=== PATIENT | male | born 1955 | race African-American/Black ===

== ENCOUNTER 2021-09-19 03:30 | Inpatient (IN) | payer MEDICARE, MEDICAID ==
[~2021-09-19] VITALS: Ht 188 cm; Wt 102.1 kg
[2021-09-19] MEDS ORDERED: NITROGLYCERIN 0.4MG TABLET SL SL PRN (03:45)
[2021-09-19] MEDS ORDERED: ASPIRIN 81MG TABLET PO ONE (03:45)
[2021-09-19 04:06] LABS: BASOPHILS % 0.8 % (0.0-2.0); HEMATOCRIT. 42.1 % (42.0-52.0); HEMOGLOBIN. 14.3 g/dL (14.0-18.0); LYMPHOCYTES % 43.4 % (20.0-50.0); MEAN CORPUSCULAR HEMOGLOBIN 29.9 pg (28.0-32.0); MEAN CORPUSCULAR VOLUME 87.9 fL (80.0-94.0); MEAN PLATELET VOLUME 9.1 fl (7.4-10.4); NEUTROPHILS % 45.8 % (40.0-76.0); PLATELET 199 x1000/uL (130-400); RED BLOOD CELL COUNT 4.79 mill/uL (4.7-6.1); RED CELL DISTRIBUTION WIDTH 13.5 % (11.6-14.6)
[2021-09-19 04:13] LABS: CHLORIDE 103 mEq/L (98-107)
[2021-09-19 09:00] VITALS: BP 136/91
[2021-09-19] MEDS ORDERED: LORAZEPAM 0.5MG TABLET PO PRN (09:45)
[2021-09-19] MEDS ORDERED: ACETAMINOPHEN 325MG TABLET PO PRN ×2 (09:45)
[2021-09-19] MEDS ORDERED: DOCUSATE SODIUM 100MG CAPSULE PO PRN (09:45)
[2021-09-19] MEDS ORDERED: CLONIDINE 0.1MG TABLET PO PRN (09:45)
[2021-09-19] MEDS ORDERED: ONDANSETRON HCL 4MG/2ML INJ IV PRN (09:45)
[2021-09-19] MEDS ORDERED: IPRATROPIUM/ALBUTEROL 0.5-3(2.5)MG/3ML NEB HHN PRN (09:45)
[2021-09-19] MEDS: POTASSIUM CHLORIDE 20MEQ TABLET SR PO SCH ×2 (09:45→15:27)
[2021-09-19] MEDS ORDERED: HYDROCODONE/ACETAMINOPHEN 5/325MG TABLET PO PRN (09:45)
[2021-09-19 12:00] VITALS: BP 136/89
[2021-09-19 12:17] LABS: CREATINE KINASE MB FRACTION 2.8 ng/mL (0.5-3.6)
[2021-09-19] MEDS: ASPIRIN 81MG TABLET PO SCH (15:30)
[2021-09-19] MEDS ORDERED: POTASSIUM CHLORIDE 20MEQ TABLET SR PO SCH (15:30)
[2021-09-19 16:00] VITALS: BP 141/90
[2021-09-19] MEDS ORDERED: LOSA1TAB37 PO (16:13)
[2021-09-19 18:05] LABS: *AMPHETAMINES SCREEN URINE NEGATIVE (NEGATIVE); *BARBITURATES SCREEN URINE NEGATIVE (NEGATIVE); *BENZODIAZEPINES SCREEN URINE NEGATIVE (NEGATIVE); *COCAINE SCREEN URINE NEGATIVE (NEGATIVE); METHADONE URINE SCREEN NEGATIVE (NEGATIVE); OPIATES URINE SCREEN NEGATIVE (NEGATIVE)
[2021-09-19 18:06] LABS: CANNABINOID URINE SCREEN NEGATIVE (NEGATIVE); PHENCYCLIDINE URINE SCREEN NEGATIVE (NEGATIVE)
[2021-09-19 20:00] VITALS: BP 128/57
[2021-09-20] VITALS (7 sets, daily range): BP systolic 106–133; BP diastolic 18–94
[2021-09-20 08:15] LABS: CHLORIDE 104 mEq/L (98-107)
[2021-09-20 08:26] LABS: BASOPHILS % 0.5 % (0.0-2.0); EOSINOPHILS % 2.1 % (0.0-5.0); HEMOGLOBIN. 13.7 g/dL (14.0-18.0); LYMPHOCYTES % 44.8 % (20.0-50.0); MEAN CORPUSCULAR HEMOGLOBIN 29.8 pg (28.0-32.0); MEAN CORPUSCULAR VOLUME 89.1 fL (80.0-94.0); MEAN PLATELET VOLUME 9.5 fl (7.4-10.4); MONOCYTES % 11.8 % (2.0-8.0); NEUTROPHILS % 40.8 % (40.0-76.0); PLATELET 203 x1000/uL (130-400); RED CELL DISTRIBUTION WIDTH 13.4 % (11.6-14.6)
[2021-09-20] MEDS: ASPIRIN 81MG TABLET PO SCH (09:24)
[2021-09-20] MEDS: FUROSEMIDE 40MG TABLET PO SCH (11:10)
[2021-09-20] MEDS ORDERED: DIPHENHYDRAMINE 12.5MG/5ML UDC PO PRN (18:30)
[2021-09-20] MEDS ORDERED: NALOXONE HCL 0.4MG/ML VIAL IV PRN (18:45)
[2021-09-20] MEDS: CARVEDILOL 3.125 MG TABLET PO SCH (22:12)
[2021-09-21] VITALS: BP 113/83
[2021-09-21 04:00] VITALS: BP 119/79
[2021-09-21 06:59] LABS: BASOPHILS % 0.4 % (0.0-2.0); EOSINOPHILS % 1.9 % (0.0-5.0); HEMATOCRIT. 41.5 % (42.0-52.0); HEMOGLOBIN. 14.1 g/dL (14.0-18.0); LYMPHOCYTES % 39.5 % (20.0-50.0); MEAN CORPUSCULAR HEMOGLOBIN 29.9 pg (28.0-32.0); MEAN CORPUSCULAR VOLUME 88.2 fL (80.0-94.0); MEAN PLATELET VOLUME 9.7 fl (7.4-10.4); MONOCYTES % 9.8 % (2.0-8.0); NEUTROPHILS % 48.4 % (40.0-76.0); PLATELET 215 x1000/uL (130-400); RED BLOOD CELL COUNT 4.71 mill/uL (4.7-6.1); RED CELL DISTRIBUTION WIDTH 13.4 % (11.6-14.6)
[2021-09-21 07:02] LABS: CHLORIDE 103 mEq/L (98-107)
[2021-09-21 08:00] VITALS: BP 132/82
[2021-09-21] MEDS: LOSARTAN POTASSIUM 25 MG TABLET PO SCH (10:31)
[2021-09-21] MEDS: CARVEDILOL 3.125 MG TABLET PO SCH ×2 (10:31→21:33)
[2021-09-21] MEDS: ASPIRIN 81MG TABLET PO SCH (10:31)
[2021-09-21] MEDS: FUROSEMIDE 40MG TABLET PO SCH (10:32)
[2021-09-21 12:00] VITALS: BP 136/85
[2021-09-21 16:00] VITALS: BP 142/90
[2021-09-21 20:00] VITALS: BP 128/85
[2021-09-22] VITALS: BP 114/64
[2021-09-22 04:00] VITALS: BP 115/79
[2021-09-22 07:46] VITALS: BP 115/83
[2021-09-22] MEDS ORDERED: REGADENOSON 0.4 MG/5 ML IV SCH (08:30)
[2021-09-22] MEDS ORDERED: COR3 PO (08:48)
[2021-09-22] MEDS ORDERED: NITR0.4T49 SL (08:48)
[2021-09-22] MEDS ORDERED: FURO40TA5 PO (08:48)
[2021-09-22] MEDS ORDERED: ASPI-1406 MT (08:48)
[2021-09-22] MEDS ORDERED: LOSA25TA3 PO (08:48)
[2021-09-22] MEDS ORDERED: REGADENOSON 0.4 MG/5 ML IV ONE (09:39)
[2021-09-22] MEDS: ASPIRIN 81MG TABLET PO SCH (10:18)
[2021-09-22] MEDS: FUROSEMIDE 40MG TABLET PO SCH (10:18)
[2021-09-22] MEDS: LOSARTAN POTASSIUM 25 MG TABLET PO SCH (10:18)
[2021-09-22] MEDS: CARVEDILOL 3.125 MG TABLET PO SCH (10:18)
[2021-09-22] MEDS ORDERED: ATOR40TA70 MT (10:47)
[2021-09-22 10:59] VITALS: BP 115/83
[2021-09-22 11:31] VITALS: BP 121/95
== END 2021-09-22 13:00 | disposition home health service (06) | DRG 206 ==
LOC: ER 03:30 → 8WST 06:11 → EDBEDREQ 06:19 → EDBEDREQTM 06:19
PROVIDERS: ADMIT Internal Medicine; ATTEND Internal Medicine
DX: M94.0 Chondrocostal junction syndrome [Tietze] (principal); I50.40 Unspecified combined systolic (congestive) and diastolic (congestive) heart failure; I42.0 Dilated cardiomyopathy; I42.2 Other hypertrophic cardiomyopathy; I25.10 Atherosclerotic heart disease of native coronary artery without angina pectoris; E78.1 Pure hyperglyceridemia; E87.6 Hypokalemia; Z20.822 Contact with and (suspected) exposure to COVID-19; E78.5 Hyperlipidemia, unspecified; F10.10 Alcohol abuse, uncomplicated; F14.10 Cocaine abuse, uncomplicated; Y90.9 Presence of alcohol in blood, level not specified; I11.0 Hypertensive heart disease with heart failure; I25.2 Old myocardial infarction; Z95.810 Presence of automatic (implantable) cardiac defibrillator; Z87.891 Personal history of nicotine dependence; Z82.49 Family history of ischemic heart disease and other diseases of the circulatory system
CPT/HCPCS: 36415; 71045; 78452; 80048; 80053; 80061; 80305; 82550; 82553; 83036; 83735; 83880; 84443; 84484; 85025; 85379; 87426; 93005; 93017; 93306; 97161; 97166; 99285; A9500; J2785

== ENCOUNTER 2021-11-12 17:32 | Inpatient (IN) | payer MEDICARE, MEDICAID ==
[~2021-11-12] VITALS: Ht 188 cm; Wt 96.7 kg
[~2021-11-12 17:32] MED LIST: ASPI-1406 MT; ATOR40TA70 MT; COR3 PO; FURO40TA5 PO; LOSA25TA3 PO; NITR0.4T49 SL
[2021-11-12] MEDS ORDERED: MORPHINE SULFATE 4 MG/ML CPJ (NOT FOR IM USE) IV STA (19:45)
[2021-11-12] MEDS ORDERED: CEFTRIAXONE 1 G PREMIX 50 ML IV ONE ×2 (19:45→21:30)
[2021-11-12] MEDS ORDERED: ONDANSETRON HCL 4MG/2ML INJ IV STA (19:45)
[2021-11-12 20:48] LABS: BASOPHILS % 0.3 % (0.0-2.0); EOSINOPHILS % 1.7 % (0.0-5.0); HEMOGLOBIN. 13.5 g/dL (14.0-18.0); LYMPHOCYTES % 22.1 % (20.0-50.0); MEAN CORPUSCULAR HEMOGLOBIN 29.7 pg (28.0-32.0); MEAN CORPUSCULAR VOLUME 89.9 fL (80.0-94.0); MEAN PLATELET VOLUME 8.9 fl (7.4-10.4); MONOCYTES % 6.8 % (2.0-8.0); NEUTROPHILS % 69.1 % (40.0-76.0); PLATELET 242 x1000/uL (130-400); RED BLOOD CELL COUNT 4.56 mill/uL (4.7-6.1); RED CELL DISTRIBUTION WIDTH 13.7 % (11.6-14.6)
[2021-11-12 20:55] LABS: PROTHROMBIN TIME 10.4 sec (9.6-11.0)
[2021-11-12 20:59] LABS: CHLORIDE 102 mEq/L (98-107)
[2021-11-12] MEDS ORDERED: MORPHINE SULFATE 4 MG/ML CPJ (NOT FOR IM USE) IV SCH (21:30)
[2021-11-12] MEDS ORDERED: ONDANSETRON HCL 4MG/2ML INJ IV SCH (21:30)
[2021-11-12] MEDS ORDERED: IOHEXOL-300 100 ML BOTTLE ONE (21:56)
[2021-11-13] MEDS ORDERED: LIDOCAINE HCL/PF 1% 10 MG/ML 5ML VIAL INFIL ONE (00:15)
[2021-11-13] MEDS ORDERED: BACITRACIN ZINC OINT UDPKT TOP ONE (00:15)
[2021-11-13] MEDS ORDERED: CEFTRIAXONE 1 G PREMIX 50 ML IV NR ×2 (01:30)
[2021-11-13] MEDS ORDERED: ONDANSETRON HCL 4MG/2ML INJ IV NR (01:30)
[2021-11-13] MEDS ORDERED: BACITRACIN ZINC OINT UDPKT TOP NR (01:30)
[2021-11-13] MEDS ORDERED: LIDOCAINE HCL/PF 1% 10 MG/ML 5ML VIAL INFIL NR (01:30)
[2021-11-13] MEDS ORDERED: DOCUSATE SODIUM 100MG CAPSULE PO PRN (10:00)
[2021-11-13] MEDS ORDERED: CLONIDINE 0.1MG TABLET PO PRN (10:00)
[2021-11-13] MEDS ORDERED: MAGNESIUM/ALUMINUM HYDROXIDE/SIMETHICONE 30ML UDC PO PRN (10:00)
[2021-11-13] MEDS ORDERED: DEXTROSE 50% WATER 50ML SYRINGE IV PRN ×3 (10:00)
[2021-11-13] MEDS ORDERED: HYDROCODONE/ACETAMINOPHEN 5/325MG TABLET PO PRN (10:00)
[2021-11-13] MEDS ORDERED: ACETAMINOPHEN 325MG TABLET PO PRN (10:00)
[2021-11-13 11:45] VITALS: BP 145/87
[2021-11-13 12:00] VITALS: BP 132/89
[2021-11-13] MEDS ORDERED: CEFTRIAXONE 1,000 MG in DEXTROSE 5% WATER 50 ML IV SCH (12:00)
[2021-11-13] MEDS: INSULIN LISPRO 100 UNITS/ML SUBCUT SCH ×3 (12:23→21:00)
[2021-11-13] MEDS: BLOOD SUGAR DIAGNOSTIC STRIP TEST SCH ×3 (12:23→21:12)
[2021-11-13] MEDS ORDERED: MORPHINE SULFATE 2 MG/ML CPJ (NOT FOR IM USE) IV NR (14:15)
[2021-11-13] MEDS: ENOXAPARIN 40MG/0.4ML SYR SUBCUT SCH (14:24)
[2021-11-13] MEDS: OMEPRAZOLE 20MG CAPSULE EXTENDED RELEASE PO SCH (14:25)
[2021-11-13 16:00] VITALS: BP 135/81
[2021-11-13 17:48] LABS: *AMPHETAMINES SCREEN URINE NEGATIVE (NEGATIVE); *BARBITURATES SCREEN URINE NEGATIVE (NEGATIVE); *BENZODIAZEPINES SCREEN URINE NEGATIVE (NEGATIVE); *COCAINE SCREEN URINE NEGATIVE (NEGATIVE); CANNABINOID URINE SCREEN PRESUMTIVE POSITIVE (NEGATIVE); METHADONE URINE SCREEN NEGATIVE (NEGATIVE); OPIATES URINE SCREEN NEGATIVE (NEGATIVE); PHENCYCLIDINE URINE SCREEN NEGATIVE (NEGATIVE)
[2021-11-13 18:00] VITALS: BP 132/80
[2021-11-13 20:00] VITALS: BP 134/74
[2021-11-13] MEDS: SULFAMETHOXAZOLE/TRIMETHOPRIM 800/160MG TABLET PO SCH (21:17)
[2021-11-13] MEDS: CEPHALEXIN 250MG CAPSULE PO SCH (21:17)
[2021-11-13] MEDS: MUPIROCIN 2% OINT 22GM NS SCH (21:18)
[2021-11-14] VITALS: BP 128/70
[2021-11-14] MEDS ORDERED: CEFTRIAXONE 1 G PREMIX 50 ML IV SCH (00:01)
[2021-11-14 04:00] VITALS: BP 127/74
[2021-11-14] MEDS: OMEPRAZOLE 20MG CAPSULE EXTENDED RELEASE PO SCH (06:27)
[2021-11-14] MEDS: BLOOD SUGAR DIAGNOSTIC STRIP TEST SCH ×2 (06:27→12:21)
[2021-11-14] MEDS: CEPHALEXIN 250MG CAPSULE PO SCH ×2 (06:27→13:51)
[2021-11-14 06:55] LABS: BASOPHILS % 0.8 % (0.0-2.0); EOSINOPHILS % 4.2 % (0.0-5.0); HEMOGLOBIN. 12.4 g/dL (14.0-18.0); LYMPHOCYTES % 37.2 % (20.0-50.0); MEAN CORPUSCULAR HEMOGLOBIN 29.3 pg (28.0-32.0); MEAN CORPUSCULAR VOLUME 87.9 fL (80.0-94.0); MEAN PLATELET VOLUME 9.5 fl (7.4-10.4); NEUTROPHILS % 48.8 % (40.0-76.0); PLATELET 225 x1000/uL (130-400); RED BLOOD CELL COUNT 4.22 mill/uL (4.7-6.1); RED CELL DISTRIBUTION WIDTH 13.6 % (11.6-14.6)
[2021-11-14 07:14] LABS: CHLORIDE 104 mEq/L (98-107)
[2021-11-14 07:29] LABS: PHOSPHORUS 3.6 mg/dL (2.5-4.9)
[2021-11-14] MEDS: INSULIN LISPRO 100 UNITS/ML SUBCUT SCH ×2 (07:50→12:22)
[2021-11-14 07:56] VITALS: BP 110/69
[2021-11-14] MEDS: MUPIROCIN 2% OINT 22GM NS SCH (09:13)
[2021-11-14] MEDS: SULFAMETHOXAZOLE/TRIMETHOPRIM 800/160MG TABLET PO SCH (09:13)
[2021-11-14] MEDS: ENOXAPARIN 40MG/0.4ML SYR SUBCUT SCH (09:14)
[2021-11-14 12:00] VITALS: BP 111/65
[2021-11-14] MEDS ORDERED: SULF1TAB44 PO (14:53)
[2021-11-14] MEDS ORDERED: MUPI22OI2 NS (14:53)
[2021-11-14] MEDS ORDERED: CEPH250C2 PO (14:53)
[2021-11-14 15:52] VITALS: BP 115/66
[2021-11-14] MEDS ORDERED: NALOXONE HCL 0.4MG/ML VIAL IV PRN (18:30)
[2021-11-15] MEDS ORDERED: FAMOTIDINE 20MG TABLET PO SCH (18:00)
== END 2021-11-14 17:20 | disposition home health service (06) | DRG 603 ==
LOC: ER 17:32 → MICUSO 11-13 02:12 → EDBEDREQTM 11-13 02:35 → EDBEDREQ 11-13 02:35 → EDBEDREQDT 11-13 02:35 → 6WST 11-13 10:44
PROVIDERS: ADMIT Internal Medicine Nephrology; ATTEND Internal Medicine Nephrology
PROC: 0H94XZZ Drainage of Neck Skin, External Approach (ICD-10-PCS; principal; 2021-11-12)
DX: L02.11 Cutaneous abscess of neck (principal); I25.10 Atherosclerotic heart disease of native coronary artery without angina pectoris; E11.9 Type 2 diabetes mellitus without complications; L03.221 Cellulitis of neck; I11.9 Hypertensive heart disease without heart failure; L02.12 Furuncle of neck; I25.2 Old myocardial infarction; Z95.810 Presence of automatic (implantable) cardiac defibrillator
CPT/HCPCS: 36415; 70491; 80048; 80053; 80076; 80305; 82962; 83036; 83735; 84100; 85025; 93970; 99285; J0696; J1650; J1815; J2270; J2405; J7060; Q9967